=== PATIENT | male | born 1950 | race Caucasian/White ===

== ENCOUNTER 2017-06-06 20:59 | Emergency (ER) | payer MEDICARE, OTHER ==
[~2017-06-06] VITALS: Ht 165.1 cm; Wt 85.5 kg
[2017-06-06 21:01] VITALS: BP 172/95; TEMP 98.3
[2017-06-06] MEDS ORDERED: PREDNISONE 5MG5 MG PO (21:24)
[2017-06-06] MEDS ORDERED: NOXAFILTAB PO (21:25)
[2017-06-06] MEDS ORDERED: UROCIT-K 5540 MG/TAB PO (21:26)
[2017-06-06] MEDS ORDERED: PROGRAF 0.5MG0.5 MG PO (21:26)
[2017-06-06] MEDS ORDERED: SINGULAIR 110 MG/TAB PO (21:27)
[2017-06-06] MEDS ORDERED: PROTONIX 40MG T40 MG PO (21:27)
[2017-06-06] MEDS ORDERED: ZOVIRAX800 MG PO (21:29)
[2017-06-06] MEDS ORDERED: ZITHROMAX 250M250 MG PO (21:30)
[2017-06-06] MEDS ORDERED: CEPHALEXIN500 M1 PO (22:20)
[2017-06-06 22:32] VITALS: PULSE 90
== END 2017-06-06 22:32 | disposition home or self-care (01) ==
LOC: COL.ER 20:59
DX: S51.012A Laceration without foreign body of left elbow, initial encounter (principal); S51.011A Laceration without foreign body of right elbow, initial encounter; Z23 Encounter for immunization; Z85.6 Personal history of leukemia; Z86.718 Personal history of other venous thrombosis and embolism; Z86.711 Personal history of pulmonary embolism; S80.212A Abrasion, left knee, initial encounter; W01.0XXA Fall on same level from slipping, tripping and stumbling without subsequent striking against object, initial encounter; Y92.009 Unspecified place in unspecified non-institutional (private) residence as the place of occurrence of the external cause